=== PATIENT | female | born 1995 | race Caucasian/White ===

== ENCOUNTER 2017-08-13 14:16 | Inpatient (IN) | payer OTHER ==
[2017-08-13 15:07] LABS: HEMATOCRIT 39.7 % (36.0-47.0); HEMOGLOBIN 13.8 g/dl (12.0-16.0); MEAN CORPUSCULAR HEMOGLOBIN 32.9 pg (27.0-33.0); MEAN CORPUSCULAR HGB CONC 34.8 g/dl (32.0-36.5); MEAN CORPUSCULAR VOLUME 94.5 fl (80.0-96.0); PLATELET COUNT, AUTOMATED 238 10^3/uL (150-450); RED CELL DISTRIBUTION WIDTH 11.5 % (11.5-14.5); WHITE BLOOD COUNT 6.6 10^3/uL (4.0-10.0)
[2017-08-13 15:19] LABS: CONTROL LINE HCG INT CTR LINE PRESENT; HCG, SERUM QUALITATIVE NEGATIVE (NEGATIVE)
[2017-08-13 15:26] LABS: AMPHETAMINES LEVEL URINE NEGATIVE (NEGATIVE); BARBITURATES URINE NEGATIVE (NEGATIVE); BENZODIAZEPINES URINE NEGATIVE (NEGATIVE); CANNABINOIDS URINE NEGATIVE (NEGATIVE); COCAINE METABOLITE URINE NEGATIVE (NEGATIVE); METHADONE URINE NEGATIVE (NEGATIVE); OPIATES URINE NEGATIVE (NEGATIVE); PHENCYCLIDINE URINE NEGATIVE (NEGATIVE)
[2017-08-13 15:55] LABS: ALBUMIN/GLOBULIN RATIO 1.29 (1.00-1.93); ALKALINE PHOSPHATASE 58 U/L (45-117); ALT/SGPT 15 U/L (12-78); ANION GAP 6 MEQ/L (8-16); AST/SGOT 15 U/L (7-37); BILIRUBIN,DIRECT < 0.1 MG/DL (0.0-0.2); BILIRUBIN,TOTAL 0.4 MG/DL (0.2-1.0); BLOOD UREA NITROGEN 12 MG/DL (7-18); CALCIUM LEVEL 8.6 MG/DL (8.5-10.1); CARBON DIOXIDE LEVEL 28 MEQ/L (21-32); CHLORIDE LEVEL 108 MEQ/L (98-107); CREATININE FOR GFR 0.89 MG/DL (0.55-1.02); ETHYL ALCOHOL (ETHANOL) < 0.003 % (0.000-0.010); GLOMERULAR FILTRATION RATE > 60.0 (>60); GLUCOSE, FASTING 85 MG/DL (70-105); POTASSIUM SERUM 3.5 MEQ/L (3.5-5.1); SALICYLATE LEVEL < 1.7 MG/DL (5.0-30.0); SODIUM LEVEL 142 MEQ/L (136-145); THYROID STIMULATING HORMONE 0.603 uIU/ML (0.358-3.740); TOTAL PROTEIN 7.1 GM/DL (6.4-8.2)
[2017-08-13 15:56] LABS: ACETAMINOPHEN LEVEL < 2.0 UG/ML (10.0-30.0)
[2017-08-13] MEDS ORDERED: MAALOX 30 ML SUSP *UDC PO (17:00)
[2017-08-13] MEDS ORDERED: MOM 30ML SUSPENSION UDC PO (17:00)
[2017-08-13] MEDS ORDERED: ACETAMINOPHEN TAB 650MG DOSE (2X325MG) PO (17:00)
[2017-08-14] MEDS: busPIRone 10 MG TAB PO ×2 (14:07→22:12)
[2017-08-14] MEDS: VENLAFAXINE **XR** 75MG CAPSULE PO (14:07)
[2017-08-14] MEDS: PRAZOSIN 1 MG CAP PO (22:12)
[2017-08-15] MEDS: busPIRone 10 MG TAB PO ×2 (09:48→22:49)
[2017-08-15] MEDS: VENLAFAXINE **XR** 75MG CAPSULE PO (09:48)
[2017-08-15] MEDS: traZODone 50 MG TAB PO (22:49)
[2017-08-15] MEDS: PRAZOSIN 1 MG CAP PO (22:50)
[2017-08-16] MEDS: busPIRone 10 MG TAB PO ×2 (12:41→22:31)
[2017-08-16] MEDS: VENLAFAXINE **XR** 75MG CAPSULE PO (12:41)
[2017-08-16] MEDS: PRAZOSIN 1 MG CAP PO (22:32)
[2017-08-17] MEDS: busPIRone 10 MG TAB PO ×2 (10:07→21:51)
[2017-08-17] MEDS: VENLAFAXINE **XR** 75MG CAPSULE PO (10:07)
[2017-08-17] MEDS ORDERED: PRAZOSIN 1 MG CAP PO (21:00)
[2017-08-17] MEDS: PRAZOSIN 1 MG CAP PO (21:52)
[2017-08-17] MEDS: RAMELTEON 8 MG TAB (ROZEREM) PO (21:52)
[2017-08-18] MEDS: VENLAFAXINE **XR** 75MG CAPSULE PO (09:26)
[2017-08-18] MEDS: busPIRone 10 MG TAB PO ×2 (09:26→21:53)
[2017-08-18] MEDS: PRAZOSIN 1 MG CAP PO (21:00)
[2017-08-18] MEDS: RAMELTEON 8 MG TAB (ROZEREM) PO (21:00)
== END 2017-08-19 00:15 | disposition home or self-care (01) | DRG 885 ==
LOC: M ED 14:16 → M ED INP 16:51 → M PSY 18:03
DX: F39 Unspecified mood [affective] disorder (principal); F60.3 Borderline personality disorder; Z91.5 Personal history of self-harm; Z79.899 Other long term (current) drug therapy